=== PATIENT | male | born 1945 | race Caucasian/White ===

== ENCOUNTER 2020-04-04 18:24 | Emergency (ER) | payer MEDICARE, BC ==
[2020-04-04] MEDS ORDERED: Sodium Chloride 0.9% 10 ML Syringe FLUSH PRN (18:44)
[2020-04-04] MEDS ORDERED: Sodium Chloride 0.9% 2.5 ML Syringe FLUSH PRN (18:44)
--- NOTE | 2020-04-04 19:38 | CR ---
Indication: Altered mental status Technique: Chest 1 view Comparison: None Findings/Impression: Cardiovascular and mediastinum: Heart size and vasculature are normal in caliber and appearance. Mediastinum is within normal limits. Lungs and pleural space: Lungs are clear. No sign of infiltrate or mass. No sign of pleural effusion. No pneumothorax. Bones and soft tissues: No significant findings. Dictated by Pinky Lopez MD @ Apr 04 2020 7:34PM Signed by Dr. Pinky Lopez @ Apr 04 2020 7:35PM
--- NOTE | 2020-04-04 19:40 | EDM.PDOC ---
<Taz Walker - Last Filed: 04/04/20 23:52> ED HPI GENERAL MEDICAL PROBLEM - General Chief Complaint: Neurological Problem Stated Complaint: HIGH AMONIA LEVELS/CONSTIPATED Time Seen by Provider: 04/04/20 18:26 - Related Data Allergies Allergy/AdvReac Type Severity Reaction Status Date / Time No Known Allergies Allergy Verified 04/04/20 18:43 Home Meds: Home Meds Ferrous Sulfate 04/04/20 [History] Furosemide [Lasix] 40 mg PO DAILY 04/04/20 [History] Insulin Glarg,Human.Rec.Analog [Lantus] 12 units ACBREAKFAST 04/04/20 [History] Insulin Lispro [HumaLOG] 04/04/20 [History] Omeprazole Magnesium [Prilosec Otc] 20 mg PO 04/04/20 [History] Simvastatin 40 mg PO 04/04/20 [History] Spironolactone [Aldactone] 25 mg PO DAILY 04/04/20 [History] Course - Re-Assessments/Exams Free Text/Narrative Re-Assessment/Exam: 04/04/20 23:52 And out to me by the PA. Patient labs returned with some elevation of LFT. Patient CAT scan had numerous muscle finding for possible portal vein thrombus possible cholangitis possible abscess. We spoke to Dr. Persaud at [facility] in patient will be transferred back to their facility for further care. Patient was started on Zosyn here for possible cholangitis. Departure - Departure Time of Disposition: 23:52 Disposition: DC/Tfer to Acute Hospital 02 Condition: Good Clinical Impression: Cholangitis - Discharge Information *PRESCRIPTION DRUG MONITORING PROGRAM REVIEWED*: Not Applicable *COPY OF PRESCRIPTION DRUG MONITORING REPORT IN PATIENT MARY: Not Applicable Referrals: Willie Reyes MD [Primary Care Provider] - Forms: ED Department Discharge <Nolvia,Melissa - Last Filed: 04/06/20 21:41> ED HPI GENERAL MEDICAL PROBLEM - General Source of Information: Reports: Patient, Family History Limitations: Reports: Altered Mental Status - History of Present Illness INITIAL COMMENTS - FREE TEXT/NARRATIVE: HISTORY AND PHYSICAL: History of present illness: Patient is a 74-year-old male who presents emergency room today with his for concern of confusion x2 days. Patient had a TIPS procedure performed at [facility] in [place] [address] Persaud. Patient's states that they have just got home on Wednesday from the hospital following the surgery. states that patient had liver failure as a result of eating "a whole bag of sunflower seeds "and states that it threw his "liver into a funk ". states that they called patient surgeon today who states that patient was supposed to be taking lactulose following the procedure. states that they did not receive a prescription for this and patient has been constipated. Patient's said that he has been more forgetful and is confused about the year. states that she instructed patient to go to the restroom and he went to the bathroom in her craft room instead and open the window. [place] any falls for patient and states that she has noticed he appears to be more yellow of the skin. Patient denies any symptoms or concerns at this time. Patient denies fever, chills, chest pain, shortness of breath, or cough. Denies headache, neck stiff ness, change in vision, syncope, or near syncope. Denies nausea, vomiting, abdominal pain, diarrhea, constipation, or dysuria. Has not noted any blood in urine or stool. Patient has been eating and drinking appropriately. Review of systems: As per history of present illness and below otherwise all systems reviewed and negative. Past medical history: As per history of present illness and as reviewed below otherwise noncontributory. Surgical history: As per history of present illness and as reviewed below otherwise noncontributory. Social history: See social history for further information Family history: As per history of present illness and as reviewed below otherwise noncontributory. Physical exam: General: Patient is alert, oriented to person but not place or time, and in no acute distress. Patient laying comfortably on exam table. HEENT: Atraumatic, normocephalic, pupils equal and reactive bilaterally, negative for conjunctival pallor but positive scleral icterus, mucous membranes moist, TMs normal bilaterally, throat clear, neck supple, nontender, trachea midline. No drooling or trismus noted. No meningeal signs. No hot potato voice noted. Lungs: Clear to auscultation, breath sounds equal bilaterally, chest nontender. Heart: S1S2, regular rate and rhythm without overt murmur Abdomen: Soft, nondistended, nontender. Negative for masses or hepatosplenomegaly. Negative for costovertebral tenderness. Pelvis: Stable nontender. Genitourinary: Deferred. Rectal: Deferred. Skin: Jaundice, intact, warm, dry. No lesions or rashes noted. Extremities: Atraumatic, negative for cords or calf pain. Neurovascular unremarkable. Neuro: Awake, alert, oriented. Cranial nerves II through XII unremarkable. Cerebellum unremarkable. Motor and sensory unremarkable throughout. Exam nonfocal. Notes: Dr. Walker has assumed care of patient and will follow remaining diagnostics and disposition for patient. Diagnostics: EKG, CBC, CMP, UA, CXR, Trop, Head CT, Ethanol, UDS, Ammonia, PT/INR, RUQ US, Abd/Pelvic w cont Therapeutics: Saline, Lactulose Impression: Altered mental status Transaminitis Elevated renal function Plan: Definitive disposition and diagnosis as appropriate pending reevaluation and review of above. Past Medical History Cardiovascular History: Reports: High Cholesterol, Hypertension Gastrointestinal History: Reports: Cirrhosis Endocrine/Metabolic History: Reports: Diabetes, Type II - Infectious Disease History Infectious Disease History: Reports: None Social & Family History - Family History Family Medical History: No Pertinent Family History - Tobacco Use Tobacco Use Status *Q: Never Tobacco User - Caffeine Use Caffeine Use: Reports: None - Recreational Drug Use Recreational Drug Use: No ED ROS GENERAL - Review of Systems Review Of Systems: Comprehensive ROS is negative, except as noted in HPI. ED EXAM, GENERAL - Physical Exam Exam: See Below (see dictation) Course - Vital Signs Last Recorded V/S: Last Vital Signs Temp 98.1 F 04/05/20 00:00 Pulse 77 04/05/20 00:00 Resp 18 04/05/20 00:00 BP 125/68 04/05/20 00:00 Pulse Ox 96 04/05/20 00:00 - Orders/Labs/Meds Labs: Laboratory Tests 04/04/20 04/04/20 04/04/20 Range/Units 19:13 19:13 19:13 WBC 4.69 (4.0-11.0) K/uL RBC 3.72 L (4.50-5.90) M/uL Hgb 11.5 L (13.0-17.0) g/dL Hct 33.6 L (38.0-50.0) % MCV 90.3 (80.0-98.0) fL MCH 30.9 (27.0-32.0) pg MCHC 34.2 (31.0-37.0) g/dL RDW Std Deviation 53.9 (28.0-62.0) fl RDW Coeff of Jessica 17 H (11.0-15.0) % Plt Count 223 (150-400) K/uL MPV 10.10 (7.40-12.00) fL Neut % (Auto) 72.9 (48.0-80.0) % Lymph % (Auto) 13.2 L (16.0-40.0) % [place] % (Auto) 10.2 (0.0-15.0) % Eos % (Auto) 2.8 (0.0-7.0) % Baso % (Auto) 0.9 (0.0-1.5) % Neut # (Auto) 3.4 (1.4-5.7) K/uL Lymph # (Auto) 0.6 (0.6-2.4) K/uL [place] # (Auto) 0.5 (0.0-0.8) K/uL Eos # (Auto) 0.1 (0.0-0.7) K/uL Baso # (Auto) 0.0 (0.0-0.1) K/uL Nucleated RBC % 0.0 /100WBC Nucleated RBCs # 0 K/uL INR 1.04 Sodium 141 (136-148) mmol/L Potassium 4.9 (3.5-5.1) mmol/L Chloride 102 (98-107) mmol/L Carbon Dioxide 29.8 (21.0-32.0) mmol/L BUN 25 H (7.0-18.0) mg/dL Creatinine 1.7 H (0.8-1.3) mg/dL Est Cr Clr Drug Dosing 39.28 mL/min Estimated GFR (MDRD) 39.8 ml/min Glucose 317 H (74-106) mg/dL Calcium 9.1 (8.5-10.1) mg/dL Total Bilirubin 2.4 H (0.2-1.0) mg/dL AST 77 H (15-37) IU/L ALT 105 H (14-63) IU/L Alkaline Phosphatase 473 H (46-116) U/L Ammonia (19-54) ug/dL Troponin I < 0.050 (0.000-0.056) ng/mL Total Protein 6.6 (6.4-8.2) g/dL Albumin 3.3 L (3.4-5.0) g/dL Globulin 3.3 (2.6-4.0) g/dL Albumin/Globulin Ratio 1.0 (0.9-1.6) Lipase 428 H (73-393) U/L Urine Color Urine Appearance Urine pH (5.0-8.0) Ur Specific [place] (1.001-1.035) Urine Protein (NEGATIVE) mg/dL Urine Glucose (UA) (NEGATIVE) mg/dL Urine Ketones (NEGATIVE) mg/dL Urine Occult Blood (NEGATIVE) Urine Nitrite (NEGATIVE) Urine Bilirubin (NEGATIVE) Urine Urobilinogen (<2.0) EU/dL Ur Leukocyte Esterase (NEGATIVE) Urine Opiates Screen (NEGATIVE) Ur Oxycodone Screen (NEGATIVE) Urine Methadone Screen (NEGATIVE) Ur Barbiturates Screen (NEGATIVE) Ur Phencyclidine Scrn (NEGATIVE) Ur Amphetamine Screen (NEGATIVE) U Methamphetamines Scrn (NEGATIVE) U Benzodiazepines Scrn (NEGATIVE) U Cocaine Metab Screen (NEGATIVE) U Marijuana (THC) Screen (NEGATIVE) Ethyl Alcohol < 3.0 mg/dL SARS-CoV-2 RNA (BÁRBARA) (NEGATIVE) 04/04/20 04/04/20 04/04/20 Range/Units 19:13 20:55 20:55 WBC (4.0-11.0) K/uL RBC (4.50-5.90) M/uL Hgb (13.0-17.0) g/dL Hct (38.0-50.0) % MCV (80.0-98.0) fL MCH (27.0-32.0) pg MCHC (31.0-37.0) g/dL RDW Std Deviation (28.0-62.0) fl RDW Coeff of Jessica (11.0-15.0) % Plt Count (150-400) K/uL MPV (7.40-12.00) fL Neut % (Auto) (48.0-80.0) % Lymph % (Auto) (16.0-40.0) % [place] % (Auto) (0.0-15.0) % Eos % (Auto) (0.0-7.0) % Baso % (Auto) (0.0-1.5) % Neut # (Auto) (1.4-5.7) K/uL Lymph # (Auto) (0.6-2.4) K/uL [place] # (Auto) (0.0-0.8) K/uL Eos # (Auto) (0.0-0.7) K/uL Baso # (Auto) (0.0-0.1) K/uL Nucleated RBC % /100WBC Nucleated RBCs # K/uL INR Sodium (136-148) mmol/L Potassium (3.5-5.1) mmol/L Chloride (98-107) mmol/L Carbon Dioxide (21.0-32.0) mmol/L BUN (7.0-18.0) mg/dL Creatinine (0.8-1.3) mg/dL Est Cr Clr Drug Dosing mL/min Estimated GFR (MDRD) ml/min Glucose (74-106) mg/dL Calcium (8.5-10.1) mg/dL Total Bilirubin (0.2-1.0) mg/dL AST (15-37) IU/L ALT (14-63) IU/L Alkaline Phosphatase (46-116) U/L Ammonia 107 H (19-54) ug/dL Troponin I (0.000-0.056) ng/mL Total Protein (6.4-8.2) g/dL Albumin (3.4-5.0) g/dL Globulin (2.6-4.0) g/dL Albumin/Globulin Ratio (0.9-1.6) Lipase (73-393) U/L Urine Color YELLOW Urine Appearance CLEAR Urine pH 7.5 (5.0-8.0) Ur Specific [place] 1.015 (1.001-1.035) Urine Protein NEGATIVE (NEGATIVE) mg/dL Urine Glucose (UA) NEGATIVE (NEGATIVE) mg/dL Urine Ketones NEGATIVE (NEGATIVE) mg/dL Urine Occult Blood NEGATIVE (NEGATIVE) Urine Nitrite NEGATIVE (NEGATIVE) Urine Bilirubin NEGATIVE (NEGATIVE) Urine Urobilinogen 0.2 (<2.0) EU/dL Ur Leukocyte Esterase NEGATIVE (NEGATIVE) Urine Opiates Screen NEGATIVE (NEGATIVE) Ur Oxycodone Screen NEGATIVE (NEGATIVE) Urine Methadone Screen NEGATIVE (NEGATIVE) Ur Barbiturates Screen NEGATIVE (NEGATIVE) Ur Phencyclidine Scrn NEGATIVE (NEGATIVE) Ur Amphetamine Screen NEGATIVE (NEGATIVE) U Methamphetamines Scrn NEGATIVE (NEGATIVE) U Benzodiazepines Scrn NEGATIVE (NEGATIVE) U Cocaine Metab Screen NEGATIVE (NEGATIVE) U Marijuana (THC) Screen NEGATIVE (NEGATIVE) Ethyl Alcohol mg/dL SARS-CoV-2 RNA (BÁRBARA) (NEGATIVE) 04/04/20 Range/Units 23:38 WBC (4.0-11.0) K/uL RBC (4.50-5.90) M/uL Hgb (13.0-17.0) g/dL Hct (38.0-50.0) % MCV (80.0-98.0) fL MCH (27.0-32.0) pg MCHC (31.0-37.0) g/dL RDW Std Deviation (28.0-62.0) fl RDW Coeff of Jessica (11.0-15.0) % Plt Count (150-400) K/uL MPV (7.40-12.00) fL Neut % (Auto) (48.0-80.0) % Lymph % (Auto) (16.0-40.0) % [place] % (Auto) (0.0-15.0) % Eos % (Auto) (0.0-7.0) % Baso % (Auto) (0.0-1.5) % Neut # (Auto) (1.4-5.7) K/uL Lymph # (Auto) (0.6-2.4) K/uL [place] # (Auto) (0.0-0.8) K/uL Eos # (Auto) (0.0-0.7) K/uL Baso # (Auto) (0.0-0.1) K/uL Nucleated RBC % /100WBC Nucleated RBCs # K/uL INR Sodium (136-148) mmol/L Potassium (3.5-5.1) mmol/L Chloride (98-107) mmol/L Carbon Dioxide (21.0-32.0) mmol/L BUN (7.0-18.0) mg/dL Creatinine (0.8-1.3) mg/dL Est Cr Clr Drug Dosing mL/min Estimated GFR (MDRD) ml/min Glucose (74-106) mg/dL Calcium (8.5-10.1) mg/dL Total Bilirubin (0.2-1.0) mg/dL AST (15-37) IU/L ALT (14-63) IU/L Alkaline Phosphatase (46-116) U/L Ammonia (19-54) ug/dL Troponin I (0.000-0.056) ng/mL Total Protein (6.4-8.2) g/dL Albumin (3.4-5.0) g/dL Globulin (2.6-4.0) g/dL Albumin/Globulin Ratio (0.9-1.6) Lipase (73-393) U/L Urine Color Urine Appearance Urine pH (5.0-8.0) Ur Specific [place] (1.001-1.035) Urine Protein (NEGATIVE) mg/dL Urine Glucose (UA) (NEGATIVE) mg/dL Urine Ketones (NEGATIVE) mg/dL Urine Occult Blood (NEGATIVE) Urine Nitrite (NEGATIVE) Urine Bilirubin (NEGATIVE) Urine Urobilinogen (<2.0) EU/dL Ur Leukocyte Esterase (NEGATIVE) Urine Opiates Screen (NEGATIVE) Ur Oxycodone Screen (NEGATIVE) Urine Methadone Screen (NEGATIVE) Ur Barbiturates Screen (NEGATIVE) Ur Phencyclidine Scrn (NEGATIVE) Ur Amphetamine Screen (NEGATIVE) U Methamphetamines Scrn (NEGATIVE) U Benzodiazepines Scrn (NEGATIVE) U Cocaine Metab Screen (NEGATIVE) U Marijuana (THC) Screen (NEGATIVE) Ethyl Alcohol mg/dL SARS-CoV-2 RNA (BÁRBARA) NEGATIVE (NEGATIVE) Meds: Medications Discontinued Medications Generic Name Dose Route Start Last Admin Trade Name Kevanq PRN Reason Stop Dose Admin Sodium Chloride 1,000 mls @ 999 mls/hr 04/04/20 21:25 04/04/20 22:03 Normal Saline IV 04/04/20 22:25 999 mls/hr STAT ONE Administration Piperacillin Sod/Tazobactam 100 mls @ 100 mls/hr 04/04/20 22:54 04/04/20 23:24 Sod 4.5 gm/ Sodium Chloride IV 04/04/20 23:53 100 mls/hr ONETIME ONE Administration Iopamidol 100 ml 04/04/20 22:01 04/04/20 22:02 Isovue Multipack-370 (76%) IVPUSH 04/04/20 22:02 100 ml ONETIME STA Administration Lactulose 20 gm 04/04/20 20:50 04/04/20 21:01 Chronulac PO 04/04/20 20:51 20 gm ONETIME ONE Administration Lactulose 0.3 gm 04/05/20 06:00 Chronulac PO TID TANIA Sodium Chloride 10 ml 04/04/20 18:44 Saline Flush FLUSH ASDIRECTED PRN Keep Vein Open Sodium Chloride 2.5 ml 04/04/20 18:44 Saline Flush FLUSH ASDIRECTED PRN Keep Vein Open Sepsis Event Note (ED) - Evaluation Sepsis Screening Result: No Definite Risk
[2020-04-04 19:56] LABS: BLOOD UREA NITROGEN,BUN 25 mg/dL (7.0-18.0); CARBON DIOXIDE,CO2 29.8 mmol/L (21.0-32.0); CHLORIDE,CL 102 mmol/L (98-107); GLUCOSE RANDOM 317 mg/dL (74-106); LIPASE 428 U/L (73-393); POTASSIUM,K 4.9 mmol/L (3.5-5.1); SODIUM,NA 141 mmol/L (136-148)
--- NOTE | 2020-04-04 20:24 | CT ---
INDICATION: Altered mental status COMPARISON: None available. TECHNIQUE: CT examination of the head was performed with 5 mm thick axial and 2 millimeter thick coronal sections without intravenous contrast. Images were obtained from the vertex of the skull through the skull base, and I examined the images with the brain and bone windows. Please note that all CT scans at this facility use dose modulation, iterative reconstruction, and/or weight-based dosing when appropriate to reduce radiation dose to as low as reasonably achievable. FINDINGS: : The brain is normal in appearance for the patient`s age on today`s study, with no sign of mass lesion, mass effect, hemorrhage, or edema. The ventricles and sulci are normal in appearance for the patient`s age. The visualized portions of the orbits are normal in appearance. The visualized portions of the paranasal sinuses and mastoids are clear. The osseous structures are normal in their appearance with no sign of abnormality in the skull base or calvarium. IMPRESSION: Normal noncontrast CT of the head for the patient`s age. Please note that all CT scans at this facility use dose modulation, iterative reconstruction, and/or weight-based dosing when appropriate to reduce radiation dose to as low as reasonably achievable. Dictated by Brendan Hammond MD @ Apr 04 2020 8:21PM Signed by Dr. Brendan Hammond @ Apr 04 2020 8:23PM
--- NOTE | 2020-04-04 20:39 | PCM.EKG ---
#1 Interpretation EKG Date: 04/04/20 Time: 19:05 Rhythm: NSR Rate (Beats/Min): 77 ST-T: Normal
[2020-04-04] MEDS ORDERED: Lactulose Soln 10 GM/15 ML 15 ML UD Cup PO ONE (20:50)
[2020-04-04] MEDS ORDERED: Sodium Chloride 0.9% 1,000 ML IV ONE (21:25)
[2020-04-04] MEDS ORDERED: Iopamidol 755 MG/ML 500 ML Multipack Bottle IVPUSH STA (22:01)
--- NOTE | 2020-04-04 22:38 | CT ---
INDICATION: Post TIPS. Jaundice. AMS TECHNIQUE: CT abdomen and pelvis acquired with IV contrast. 100 mL of Isovue 370 administered. COMPARISON: None available FINDINGS: Lower chest: Mild prominence of the distal esophageal wall. Sub centimeter distal paraesophageal lymph nodes. A dilated ascending aorta measuring 4 cm. Gynecomastia. Liver: A cirrhotic liver with a TIPS shunt in place. Hepatic steatosis. Ill-defined mild heterogeneity of the inferior aspect of the medial segment of the left lobe. A focal thrombus seen in the left portal vein on images 41-45 of series 201. Spleen: Unremarkable. Pancreas: Several pancreatic low-density lesions, including a 7 mm lesion in the pancreatic head on image 78, a 9 mm lesion in the pancreatic neck on image 71, a 1.2 cm lesion in the pancreatic body on image 62, a 1.8 x 1.6 cm lesion in the pancreatic body on image 59, a 1 cm pancreatic body lesion on image 63, and a 1.7 x 1.4 cm lesion in the pancreatic tail on image 62. Gallbladder and bile ducts: Cholecystectomy. Apparent mild enhancement along the wall of the nondilated CBD and cystic duct remnant. Adrenal glands: Mild adrenal thickening which could represent mild hyperplasia. Kidneys: Unremarkable. GI tract: Edema adjacent to the proximal duodenum could be related to ascites. No bowel obstruction. The appendix is not seen. Rectal wall thickening with slight perirectal stranding. Vascular structures: Atherosclerotic changes. Few small caliber upper abdominal collaterals. Lymph nodes: Shotty subcentimeter upper abdominal lymph nodes, nonspecific. No abnormally enlarged lymph nodes. Miscellaneous: Small to moderate ascites. No free air. A multi lobulated low-density structure or collection in the supraumbilical anterior abdominal wall subcutaneous fat, measuring 5.3 x 2.1 x 3.5 cm, demonstrating thin peripheral and septal enhancement. An adjacent 2.5 x 2.0 cm soft tissue density right of midline on image 122, and an irregular fungating soft tissue density structure at the umbilicus, measuring up to 7.4 x 3.1 x 5.9 cm. Pelvic Organs: Status post prostatectomy and pelvic lymph node dissection. A contracted bladder demonstrating diffuse wall thickening. An 8 mm ovoid enhancing soft tissue density at the anterior aspect of the bladder on image 183 which may be related to the adjacent pubic symphysis. Bones: Unremarkable for age. IMPRESSION: Cirrhosis with TIPS shunt in place. Hepatic steatosis. Heterogeneous appearance of the medial segment of the left lobe. Recommend follow-up evaluation with contrast MRI to exclude underlying neoplasm. Small to moderate ascites. Multiple pancreatic low-density lesions. Follow-up with contrast MRI evaluation. Mild enhancement along the wall of the nondilated CBD. Correlate clinically to exclude cholangitis. An irregular fungating soft tissue structure at the umbilicus with an ovoid soft tissue density in the underlying anterior abdominal subcutaneous fat, right of midline, and an adjacent lobulated, septated low-density structure or collection. Neoplasm is a prime consideration and further evaluation is recommended. A focal thrombus in the left portal vein. Rectal wall thickening, nonspecific in the setting of cirrhosis. Correlate for proctitis. Diffuse bladder wall thickening. Correlate for cystitis. A subcentimeter ovoid enhancing soft tissue density at the anterior aspect of the bladder wall may be related to the adjacent pubic symphysis, however further urological evaluation is recommended to exclude bladder neoplasm. Mild distal esophageal wall thickening. Correlate for esophagitis. Please note that all CT scans at this facility use dose modulation, iterative reconstruction, and/or weight-based dosing when appropriate to reduce radiation dose to as low as reasonably achievable. Dictated by Juan R Milian MD @ Apr 04 2020 10:10PM Signed by Dr. Juan R Milian @ Apr 04 2020 10:37PM
[2020-04-04] MEDS ORDERED: Piperacillin/Tazobactam 4.5 GM in Sodium Chloride 0.9% 100 ML IV ONE (22:54)
--- NOTE | 2020-04-04 22:56 | US ---
INDICATION: Status post TIPS with obstructive labs. COMPARISON: CT of the abdomen and pelvis from earlier this evening. TECHNIQUE: Ultrasound examination of the right upper quadrant was performed. FINDINGS: Again seen is mild ascites with fluid in the upper abdomen, but not present in the lower quadrants. The gallbladder is absent, consistent with cholecystectomy. There is no residual fluid in the gall bladder fossa. The common bile duct cannot be identified because of bowel gas. The pancreatic head and body were examined, and these are normal in appearance. The abdominal aorta and visualized portions of the inferior vena cava are normal in appearance. The liver is small and nodular, consistent with cirrhosis. Hepatopetal flow is seen in the portal vein. The TIPS shunt is patent with low resistance flow. The right kidney is unremarkable. The spleen does not appear to be enlarged. IMPRESSION: Unable to identify the common bile duct because of bowel gas. Status post cholecystectomy. Mild ascites. Small, nodular liver consistent with cirrhosis. Patent TIPS shunt. Antegrade flow in the portal vein. Dictated by Brendan Hammond MD @ Apr 04 2020 10:47PM Signed by Dr. Brendan Hammond @ Apr 04 2020 10:55PM
[2020-04-05 00:07] VITALS: BP 125/68; PULSE 77
[2020-04-05] MEDS ORDERED: Lactulose Soln 10 GM/15 ML 15 ML UD Cup PO SCH (06:00)
== END 2020-04-05 00:45 ==
LOC: MW.ED 18:24
DX: K83.09 Other cholangitis (principal); R41.82 Altered mental status, unspecified; E78.00 Pure hypercholesterolemia, unspecified; I10 Essential (primary) hypertension; E11.9 Type 2 diabetes mellitus without complications; R79.89 Other specified abnormal findings of blood chemistry; R74.01 Elevation of levels of liver transaminase levels; Z79.4 Long term (current) use of insulin; Z79.899 Other long term (current) drug therapy; Z20.822 Contact with and (suspected) exposure to COVID-19
CPT/HCPCS: 36415; 70450; 71045; 74177; 76705; 80053; 80179; 80305; 81003; 82140; 83690; 84484; 85025; 85610; 93005; 96365; 99285; A9270; J2543; J7030; Q9967; U0002; 93010; 99284

== ENCOUNTER 2020-09-27 21:56 | Observation (INO) | payer MEDICARE, BC ==
[2020-09-27] MEDS ORDERED: Sodium Chloride 0.9% 2.5 ML Syringe FLUSH PRN (22:53)
[2020-09-27] MEDS ORDERED: Sodium Chloride 0.9% 10 ML Syringe FLUSH PRN (22:53)
[2020-09-27 23:12] LABS: CARBON DIOXIDE,CO2 26.2 mmol/L (21.0-32.0); POTASSIUM,K 5.1 mmol/L (3.5-5.1)
--- NOTE | 2020-09-27 23:56 | CT ---
INDICATION: Transient alteration of awareness TECHNIQUE: CT Head without i.v. contrast. Coronal and sagittal reformats were obtained. COMPARISON: 04/04/2020 FINDINGS: CSF space: Unremarkable for age. Brain: No evidence of mass, acute infarction or hemorrhage is seen. No mass-effect or midline shift is seen. Mild diffuse cortical atrophy is noted. The brain parenchyma is otherwise normal in appearance with preservation of the baez-white matter junction. Calvarium: The visualized paranasal sinuses are well aerated. The mastoid air cells are clear. The visualized orbits are grossly unremarkable. The calvarium is unremarkable in appearance with no fractures identified. IMPRESSION: 1. No evidence of acute infarction, intracranial hemorrhage, or mass-effect seen. Please note that all CT scans at this facility use dose modulation, iterative reconstruction, and/or weight-based dosing when appropriate to reduce radiation dose to as low as reasonably achievable. Dictated by: Doroteo Estrada MD @ 09/27/2020 23:55:11 (Electronically Signed)
[2020-09-28] MEDS ORDERED: Lactulose Soln 10 GM/15 ML 15 ML UD Cup PO ONE ×2 (00:39→21:30)
[2020-09-28] MEDS ORDERED: Sodium Chloride 0.9% 1,000 ML IV SCH (00:45)
--- NOTE | 2020-09-28 01:47 | EDM.PDOC ---
ED HPI GENERAL MEDICAL PROBLEM - General Chief Complaint: Gastrointestinal Problem Stated Complaint: FELELING CONFUSED POSSABLE HIGH AMONIA Time Seen by Provider: 09/27/20 22:26 Source of Information: Reports: Patient, Family - History of Present Illness INITIAL COMMENTS - FREE TEXT/NARRATIVE: History of present illness: 74-year-old male brought by for confusion with concern for elevated ammonia level. The patient has a history of cirrhosis. He normally takes lactulose 45 mg 4 times per day, however his noticed over the last few days he has been attempting to pour into the cup and has been shaky and spilling it therefore not getting his full dose on multiple occasions. Over the last week he has been more confused, and sleepy and forgetful, "offkilter". She did note today that he basically was laying around in bed all day, sleeping most of the day and earlier in the day his close were put on "all goofy". She did note today that he had some decrease eating and had no appetite. Patient himself has no complaints. Review of systems: As per history of present illness and below otherwise all systems reviewed and negative. Past medical history: As per history of present illness and as reviewed below otherwise noncontributory. Surgical history: As per history of present illness and as reviewed below otherwise noncontributory. Social history: Non-smoker Family history: As per history of present illness and as reviewed below otherwise noncontributory. Physical exam: GEN: no acute distress, well appearing HEENT: Atraumatic, normocephalic, mucous membranes moist, Neck: supple, nontender, trachea midline. Lungs: No respiratory distress. Heart: RRR Abdomen: Soft, nondistended, nontender. No ascites. Back: Full range of motion Extremities: Atraumatic. Neurovascularly intact. Neuro: Awake, alert, confused about date. Oriented to self and place. Neuro Exam nonfocal. Skin: warm, dry, no lesions Diagnostics: Labs, ammonia, EKG, CT head Ammonia elevated, creatinine acutely elevated from prior levels. CT Head WO CONT-09/27/2020 11:18:57 PM Ordering Physician: Sascha Barnard Final Report: INDICATION: Transient alteration of awareness TECHNIQUE: CT Head without i.v. contrast. Coronal and sagittal reformats were obtained. COMPARISON: 04/04/2020 FINDINGS: CSF space: Unremarkable for age. Brain: No evidence of mass, acute infarction or hemorrhage is seen. No mass- effect or midline shift is seen. Mild diffuse cortical atrophy is noted. The brain parenchyma is otherwise normal in appearance with preservation of the baez-white matter junction. Calvarium: The visualized paranasal sinuses are well aerated. The mastoid air cells are clear. The visualized orbits are grossly unremarkable. The calvarium is unremarkable in appearance with no fractures identified. IMPRESSION: 1. No evidence of acute infarction, intracranial hemorrhage, or mass-effect seen. EKG performed September 27, 2020 at 10:48 PM, sinus arrhythmia, rate 68, no acute ischemia, no STEMI. Interpreted by me. Therapeutics: Lactulose and IV fluids MDM: Patient presenting with confusion/altered mental status and decreased activity. Ammonia level is elevated. Creatinine is also elevated. Normal neurologic exam other than orientation. Given IV fluids and lactulose. Will admit Impression: Acute renal sufficiency, hepatic encephalopathy, hyperammonemia, altered mental status Plan: [] Definitive disposition and diagnosis as appropriate pending reevaluation and review of above. - Related Data Allergies Allergy/AdvReac Type Severity Reaction Status Date / Time No Known Allergies Allergy Verified 09/27/20 22:36 Home Meds: Home Meds Ferrous Sulfate 1 tab PO DAILY 04/04/20 [History] Furosemide [Lasix] 40 mg PO BID 04/04/20 [History] Insulin Glarg,Human.Rec.Analog [Lantus] 15 units SQ ACBREAKFAST 04/04/20 [History] Omeprazole Magnesium [Prilosec Otc] 40 mg PO DAILY 04/04/20 [History] Simvastatin 40 mg PO ASDIRECTED 04/04/20 [History] Spironolactone [Aldactone] 50 mg PO DAILY 04/04/20 [History] Aspirin 81 mg PO DAILY 09/28/20 [History] Lactulose 45 gm PO Q4HR 09/28/20 [History] Midodrine 2.5 mg PO BID 09/28/20 [History] Rifaximin [Xifaxan] 550 mg PO BID 09/28/20 [History] metFORMIN [Glucophage] 500 mg PO BIDMEALS 09/28/20 [History] Past Medical History HEENT History: Reports: Hard of Hearing Cardiovascular History: Reports: High Cholesterol, Hypertension Respiratory History: Reports: None Gastrointestinal History: Reports: Cirrhosis Genitourinary History: Reports: Prostate Disorder Musculoskeletal History: Reports: None Neurological History: Reports: None Psychiatric History: Reports: None Endocrine/Metabolic History: Reports: Diabetes, Type II Insulin Pump Model and Shared Services Manager: None Hematologic History: Reports: None Immunologic History: Reports: None Oncologic (Cancer) History: Reports: Prostate Dermatologic History: Reports: None - Infectious Disease History Infectious Disease History: Reports: None - Past Surgical History Head Surgeries/Procedures: Reports: None GI Surgical History: Reports: Cholecystectomy, Other (See Below) Other GI Surgeries/Procedures: Liver Stents Social & Family History - Family History Family Medical History: No Pertinent Family History - Caffeine Use Caffeine Use: Reports: None - Recreational Drug Use Recreational Drug Use: No ED ROS GENERAL - Review of Systems Review Of Systems: See Below (See dictation) ED EXAM, GENERAL - Physical Exam Exam: See Below (See dictation) Course - Vital Signs Last Recorded V/S: Last Vital Signs Temp 97 F 09/27/20 22:25 Pulse 77 09/28/20 01:00 Resp 18 09/28/20 01:00 BP 138/67 09/28/20 01:00 Pulse Ox 97 09/28/20 01:00 - Orders/Labs/Meds Orders: Active Orders 24 hr Category Date Time Status EKG Documentation Completion [RC] STAT Care 09/27/20 22:54 Active Sodium Chloride 0.9% [Normal Saline] 1,000 ml Med 09/28/20 00:45 Active IV ASDIRECTED Sodium Chloride 0.9% [Saline Flush] Med 09/27/20 22:53 Active 10 ml FLUSH ASDIRECTED PRN Sodium Chloride 0.9% [Saline Flush] Med 09/27/20 22:53 Active 2.5 ml FLUSH ASDIRECTED PRN Saline Lock Insert [OM.PC] Stat Oth 09/27/20 22:53 Ordered Medication Orders Sodium Chloride (Normal Saline) 1,000 mls @ 200 mls/hr IV ASDIRECTED TANIA Last Admin: 09/28/20 01:04 Dose: 200 mls/hr Documented by: NA Sodium Chloride (Sodium Chloride 0.9% 10 Ml Syringe) 10 ml FLUSH ASDIRECTED PRN PRN Reason: Keep Vein Open Sodium Chloride (Sodium Chloride 0.9% 2.5 Ml Syringe) 2.5 ml FLUSH ASDIRECTED PRN PRN Reason: Keep Vein Open Labs: Laboratory Tests 09/27/20 09/27/20 09/27/20 Range/Units 11:15 22:50 22:50 WBC 7.78 (4.0-11.0) K/uL RBC 4.23 L (4.50-5.90) M/uL Hgb 13.8 (13.0-17.0) g/dL Hct 37.0 L (38.0-50.0) % MCV 87.5 (80.0-98.0) fL MCH 32.6 H (27.0-32.0) pg MCHC 37.3 H (31.0-37.0) g/dL RDW Std Deviation 45.3 (28.0-62.0) fl RDW Coeff of Jessica 15 (11.0-15.0) % Plt Count 174 (150-400) K/uL MPV 11.70 (7.40-12.00) fL Neut % (Auto) 68.4 (48.0-80.0) % Lymph % (Auto) 16.2 (16.0-40.0) % Castro % (Auto) 12.2 (0.0-15.0) % Eos % (Auto) 2.6 (0.0-7.0) % Baso % (Auto) 0.6 (0.0-1.5) % Neut # (Auto) 5.3 (1.4-5.7) K/uL Lymph # (Auto) 1.3 (0.6-2.4) K/uL Castro # (Auto) 1.0 H (0.0-0.8) K/uL Eos # (Auto) 0.2 (0.0-0.7) K/uL Baso # (Auto) 0.1 (0.0-0.1) K/uL Nucleated RBC % 0.0 /100WBC Nucleated RBCs # 0 K/uL Sodium 136 (136-148) mmol/L Potassium 5.1 (3.5-5.1) mmol/L Chloride 99 (98-107) mmol/L Carbon Dioxide 26.2 (21.0-32.0) mmol/L BUN 30 H (7.0-18.0) mg/dL Creatinine 2.3 H (0.8-1.3) mg/dL Est Cr Clr Drug Dosing 29.98 mL/min Estimated GFR (MDRD) 28.1 ml/min Glucose 261 H (74-106) mg/dL Calcium 12.5 H (8.5-10.1) mg/dL Total Bilirubin 2.6 H (0.2-1.0) mg/dL AST 93 H (15-37) IU/L ALT 115 H (14-63) IU/L Alkaline Phosphatase 274 H (46-116) U/L Ammonia (19-54) ug/dL Total Protein 7.0 (6.4-8.2) g/dL Albumin 3.6 (3.4-5.0) g/dL Globulin 3.4 (2.6-4.0) g/dL Albumin/Globulin Ratio 1.1 (0.9-1.6) Urine Color YELLOW Urine Appearance CLEAR Urine pH 5.5 (5.0-8.0) Ur Specific [place] 1.025 (1.001-1.035) Urine Protein 30 H (NEGATIVE) mg/dL Urine Glucose (UA) NEGATIVE (NEGATIVE) mg/dL Urine Ketones NEGATIVE (NEGATIVE) mg/dL Urine Occult Blood TRACE-INTACT H (NEGATIVE) Urine Nitrite NEGATIVE (NEGATIVE) Urine Bilirubin NEGATIVE (NEGATIVE) Urine Urobilinogen 0.2 (<2.0) EU/dL Ur Leukocyte Esterase NEGATIVE (NEGATIVE) SARS-CoV-2 RNA (BÁRBARA) (NEGATIVE) 09/27/20 09/28/20 Range/Units 22:50 01:15 WBC (4.0-11.0) K/uL RBC (4.50-5.90) M/uL Hgb (13.0-17.0) g/dL Hct (38.0-50.0) % MCV (80.0-98.0) fL MCH (27.0-32.0) pg MCHC (31.0-37.0) g/dL RDW Std Deviation (28.0-62.0) fl RDW Coeff of Jessica (11.0-15.0) % Plt Count (150-400) K/uL MPV (7.40-12.00) fL Neut % (Auto) (48.0-80.0) % Lymph % (Auto) (16.0-40.0) % Castro % (Auto) (0.0-15.0) % Eos % (Auto) (0.0-7.0) % Baso % (Auto) (0.0-1.5) % Neut # (Auto) (1.4-5.7) K/uL Lymph # (Auto) (0.6-2.4) K/uL Castro # (Auto) (0.0-0.8) K/uL Eos # (Auto) (0.0-0.7) K/uL Baso # (Auto) (0.0-0.1) K/uL Nucleated RBC % /100WBC Nucleated RBCs # K/uL Sodium (136-148) mmol/L Potassium (3.5-5.1) mmol/L Chloride (98-107) mmol/L Carbon Dioxide (21.0-32.0) mmol/L BUN (7.0-18.0) mg/dL Creatinine (0.8-1.3) mg/dL Est Cr Clr Drug Dosing mL/min Estimated GFR (MDRD) ml/min Glucose (74-106) mg/dL Calcium (8.5-10.1) mg/dL Total Bilirubin (0.2-1.0) mg/dL AST (15-37) IU/L ALT (14-63) IU/L Alkaline Phosphatase (46-116) U/L Ammonia 95 H (19-54) ug/dL Total Protein (6.4-8.2) g/dL Albumin (3.4-5.0) g/dL Globulin (2.6-4.0) g/dL Albumin/Globulin Ratio (0.9-1.6) Urine Color Urine Appearance Urine pH (5.0-8.0) Ur Specific [place] (1.001-1.035) Urine Protein (NEGATIVE) mg/dL Urine Glucose (UA) (NEGATIVE) mg/dL Urine Ketones (NEGATIVE) mg/dL Urine Occult Blood (NEGATIVE) Urine Nitrite (NEGATIVE) Urine Bilirubin (NEGATIVE) Urine Urobilinogen (<2.0) EU/dL Ur Leukocyte Esterase (NEGATIVE) SARS-CoV-2 RNA (BÁRBARA) NEGATIVE (NEGATIVE) Meds: Medications Generic Name Dose Route Start Last Admin Trade Name Freq PRN Reason Stop Dose Admin Sodium Chloride 1,000 mls @ 200 mls/hr 09/28/20 00:45 09/28/20 01:04 Normal Saline IV 200 mls/hr ASDIRECTED TANIA Administration Sodium Chloride 10 ml 09/27/20 22:53 Sodium Chloride 0.9% 10 Ml Syringe FLUSH ASDIRECTED PRN Keep Vein Open Sodium Chloride 2.5 ml 09/27/20 22:53 Sodium Chloride 0.9% 2.5 Ml Syringe FLUSH ASDIRECTED PRN Keep Vein Open Discontinued Medications Generic Name Dose Route Start Last Admin Trade Name Janna PRN Reason Stop Dose Admin Lactulose 10 gm 09/28/20 00:39 09/28/20 01:07 Lactulose Soln 10 Gm/15 Ml 15 Ml Ud Cup PO 09/28/20 00:40 10 gm ONETIME ONE Administration - Re-Assessments/Exams Free Text/Narrative Re-Assessment/Exam: 09/28/20 01:12 The patient reports he is feeling better. Discussed all results and recommendation for admission with the patient and spouse. They agree with the plan. 09/28/20 01:[address] Ibarra for admission. He accepts. Departure - Departure Time of Disposition: 01:35 Disposition: Refer to Observation Clinical Impression: Hepatic encephalopathy, Acute renal insufficiency - Discharge Information Sepsis Event Note (ED) - Evaluation Sepsis Screening Result: No Definite Risk - Focused Exam Vital Signs: Vital Signs Temp Pulse Resp BP Pulse Ox 09/28/20 01:00 77 18 138/67 97 09/27/20 23:30 73 18 139/68 99 09/27/20 22:25 97 F 83 18 145/71 H 97 - My Orders Last 24 Hours: My Active Orders 09/27/20 22:53 Sodium Chloride 0.9% [Saline Flush] 10 ml FLUSH ASDIRECTED PRN Sodium Chloride 0.9% [Saline Flush] 2.5 ml FLUSH ASDIRECTED PRN Saline Lock Insert [OM.PC] Stat 09/27/20 22:54 EKG Documentation Completion [RC] STAT 09/28/20 00:45 Sodium Chloride 0.9% [Normal Saline] 1,000 ml IV ASDIRECTED - Assessment/Plan Last 24 Hours: My Active Orders 09/27/20 22:53 Sodium Chloride 0.9% [Saline Flush] 10 ml FLUSH ASDIRECTED PRN Sodium Chloride 0.9% [Saline Flush] 2.5 ml FLUSH ASDIRECTED PRN Saline Lock Insert [OM.PC] Stat 09/27/20 22:54 EKG Documentation Completion [RC] STAT 09/28/20 00:45 Sodium Chloride 0.9% [Normal Saline] 1,000 ml IV ASDIRECTED
[2020-09-28] MEDS ORDERED: Glucagon,Human Recombinant 1 MG Vial IM PRN (04:26)
[2020-09-28] MEDS ORDERED: 50% Dextrose in Water 50 ML Syringe IVPUSH PRN (04:26)
[2020-09-28] MEDS ORDERED: Lactulose Soln 10 GM/15 ML 15 ML UD Cup PO SCH (06:00)
[2020-09-28 07:06] LABS: CARBON DIOXIDE,CO2 24.3 mmol/L (21.0-32.0); POTASSIUM,K 4.5 mmol/L (3.5-5.1)
[2020-09-28] MEDS: Insulin Aspart 100 Units/ML 3 ML Pen SUBCUT SCH ×3 (07:30→17:53)
[2020-09-28] MEDS: Lactulose Soln 10 GM/15 ML 15 ML UD Cup PO SCH ×3 (08:58→17:52)
[2020-09-28] MEDS ORDERED: Simvastatin 40 MG Tab PO SCH (11:45)
--- NOTE | 2020-09-28 11:56 | PCM.HP.2 ---
H&P History of Present Illness - General Date of Service: 09/28/20 Admit Problem/Dx: Admission Diagnosis/Problem Admission Diagnosis/Problem Hepatic encephalopathy - History of Present Illness Initial Comments - Free Text/Narative: 74-year-old male brought into the emergency department by his presents to the ED for confusion and admitted to the service for confusion and hyperammonemia. The patient past medical history includes with TIPS procedure has a history of cirrhosis. Patient's states that his regular dose of lactulose is 45 mL 4 times a day however the patient has been having unsteady hands causing him to spill some of the lactulose onto the ground not getting the full 45 mL required in his cup for consumption. Patient's suspects this may been going on for a few days causing the patient to become more confused, sleepy, forgetful. Patient was noted to have reduced food intake and a decreased appetite. ED work-up to include laboratory, BUN 26, creatinine 2.1 AST 76, ALT 100, alk phos 237, ammonia level 95. Head CT impression, no evidence of acute infarction, intracranial hemorrhage, or mass-effect seen. Upon admission patient started on lactulose 30gm p.o. 4 times daily and rifaximin. Will hold Lasix, midodrine and spironolactone, resume as needed based on fluid status and blood pressure. - Related Data Allergies/Adverse Reactions: Allergies Allergy/AdvReac Type Severity Reaction Status Date / Time No Known Allergies Allergy Verified 09/28/20 05:19 Home Medications: Home Meds Ferrous Sulfate 1 tab PO DAILY 04/04/20 [History] Furosemide [Lasix] 40 mg PO BID 04/04/20 [History] Insulin Glarg,Human.Rec.Analog [Lantus] 15 units SQ ACBREAKFAST 04/04/20 [History] Omeprazole Magnesium [Prilosec Otc] 40 mg PO DAILY 04/04/20 [History] Simvastatin 40 mg PO ASDIRECTED 04/04/20 [History] Spironolactone [Aldactone] 50 mg PO DAILY 04/04/20 [History] Aspirin 81 mg PO DAILY 09/28/20 [History] Lactulose 45 ml PO Q4HR 09/28/20 [History] Midodrine 2.5 mg PO BID 09/28/20 [History] Rifaximin [Xifaxan] 550 mg PO BID 09/28/20 [History] metFORMIN [Glucophage] 500 mg PO BIDMEALS 09/28/20 [History] Past Medical History HEENT History: Reports: Hard of Hearing Cardiovascular History: Reports: High Cholesterol, Hypertension Respiratory History: Reports: None Gastrointestinal History: Reports: Cirrhosis Genitourinary History: Reports: Prostate Disorder Musculoskeletal History: Reports: None Neurological History: Reports: None Psychiatric History: Reports: None Endocrine/Metabolic History: Reports: Diabetes, Type II Insulin Pump Model and Frame Bander: None Hematologic History: Reports: None Immunologic History: Reports: None Oncologic (Cancer) History: Reports: Prostate Dermatologic History: Reports: None - Infectious Disease History Infectious Disease History: Reports: None - Past Surgical History Head Surgeries/Procedures: Reports: None GI Surgical History: Reports: Cholecystectomy, Other (See Below) Other GI Surgeries/Procedures: Liver Stents Social & Family History - Family History Family Medical History: No Pertinent Family History - Tobacco Use Tobacco Use Status *Q: Never Tobacco User - Caffeine Use Caffeine Use: Reports: None - Recreational Drug Use Recreational Drug Use: No H&P Review of Systems - Review of Systems: Review Of Systems: See Below General: Reports: Weakness, Fatigue. Denies: Fever, Chills Pulmonary: Denies: Shortness of Breath, Wheezing, Pleuritic Chest Pain, Cough Cardiovascular: Denies: Chest Pain, Palpitations Gastrointestinal: Reports: Decreased Appetite. Denies: Abdominal Pain, Nausea, Vomiting Genitourinary: Denies: Dysuria Psychiatric: Reports: Confusion Neurological: Reports: Confusion. Denies: Headache Exam - Exam Exam: See Below - Vital Signs Vital Signs: Last Vital Signs Temp 97.3 F 09/28/20 05:00 Pulse 69 09/28/20 05:00 Resp 17 09/28/20 05:00 BP 146/63 H 09/28/20 05:00 Pulse Ox 98 09/28/20 05:00 Weight: 193 lb 4.8 oz - Exam General: Alert Lungs: Clear to Auscultation, Normal Respiratory Effort Cardiovascular: Regular Rate, Regular Rhythm GI/Abdominal Exam: Soft, Non-Tender, No Distention Extremities: No Pedal Edema Neuro Extensive - Mental Status: Alert. No: Normal Mood/Affect, Normal Cognition - Patient Data Lab Results Last 24 hrs: Laboratory Results - last 24 hr 09/27/20 09/27/20 09/27/20 Range/Units 11:15 22:50 22:50 WBC 7.78 (4.0-11.0) K/uL RBC 4.23 L (4.50-5.90) M/uL Hgb 13.8 (13.0-17.0) g/dL Hct 37.0 L (38.0-50.0) % MCV 87.5 (80.0-98.0) fL MCH 32.6 H (27.0-32.0) pg MCHC 37.3 H (31.0-37.0) g/dL RDW Std Deviation 45.3 (28.0-62.0) fl RDW Coeff of Jessica 15 (11.0-15.0) % Plt Count 174 (150-400) K/uL MPV 11.70 (7.40-12.00) fL Neut % (Auto) 68.4 (48.0-80.0) % Lymph % (Auto) 16.2 (16.0-40.0) % [place] % (Auto) 12.2 (0.0-15.0) % Eos % (Auto) 2.6 (0.0-7.0) % Baso % (Auto) 0.6 (0.0-1.5) % Neut # (Auto) 5.3 (1.4-5.7) K/uL Lymph # (Auto) 1.3 (0.6-2.4) K/uL [place] # (Auto) 1.0 H (0.0-0.8) K/uL Eos # (Auto) 0.2 (0.0-0.7) K/uL Baso # (Auto) 0.1 (0.0-0.1) K/uL Nucleated RBC % 0.0 /100WBC Nucleated RBCs # 0 K/uL Sodium 136 (136-148) mmol/L Potassium 5.1 (3.5-5.1) mmol/L Chloride 99 (98-107) mmol/L Carbon Dioxide 26.2 (21.0-32.0) mmol/L BUN 30 H (7.0-18.0) mg/dL Creatinine 2.3 H (0.8-1.3) mg/dL Est Cr Clr Drug Dosing 29.98 mL/min Estimated GFR (MDRD) 28.1 ml/min Glucose 261 H (74-106) mg/dL POC Glucose (70-99) mg/dL Calcium 12.5 H (8.5-10.1) mg/dL Total Bilirubin 2.6 H (0.2-1.0) mg/dL AST 93 H (15-37) IU/L ALT 115 H (14-63) IU/L Alkaline Phosphatase 274 H (46-116) U/L Ammonia (19-54) ug/dL Total Protein 7.0 (6.4-8.2) g/dL Albumin 3.6 (3.4-5.0) g/dL Globulin 3.4 (2.6-4.0) g/dL Albumin/Globulin Ratio 1.1 (0.9-1.6) Urine Color YELLOW Urine Appearance CLEAR Urine pH 5.5 (5.0-8.0) Ur Specific [place] 1.025 (1.001-1.035) Urine Protein 30 H (NEGATIVE) mg/dL Urine Glucose (UA) NEGATIVE (NEGATIVE) mg/dL Urine Ketones NEGATIVE (NEGATIVE) mg/dL Urine Occult Blood TRACE-INTACT H (NEGATIVE) Urine Nitrite NEGATIVE (NEGATIVE) Urine Bilirubin NEGATIVE (NEGATIVE) Urine Urobilinogen 0.2 (<2.0) EU/dL Ur Leukocyte Esterase NEGATIVE (NEGATIVE) SARS-CoV-2 RNA (BÁRBARA) (NEGATIVE) 09/27/20 09/28/20 09/28/20 Range/Units 22:50 01:15 06:05 WBC 6.28 (4.0-11.0) K/uL RBC 3.78 L (4.50-5.90) M/uL Hgb 12.1 L (13.0-17.0) g/dL Hct 33.3 L (38.0-50.0) % MCV 88.1 (80.0-98.0) fL MCH 32.0 (27.0-32.0) pg MCHC 36.3 (31.0-37.0) g/dL RDW Std Deviation 46.0 (28.0-62.0) fl RDW Coeff of Jessica 15 (11.0-15.0) % Plt Count 142 L (150-400) K/uL MPV 11.30 (7.40-12.00) fL Neut % (Auto) 64.8 (48.0-80.0) % Lymph % (Auto) 19.4 (16.0-40.0) % [place] % (Auto) 10.5 (0.0-15.0) % Eos % (Auto) 4.3 (0.0-7.0) % Baso % (Auto) 1.0 (0.0-1.5) % Neut # (Auto) 4.1 (1.4-5.7) K/uL Lymph # (Auto) 1.2 (0.6-2.4) K/uL [place] # (Auto) 0.7 (0.0-0.8) K/uL Eos # (Auto) 0.3 (0.0-0.7) K/uL Baso # (Auto) 0.1 (0.0-0.1) K/uL Nucleated RBC % 0.0 /100WBC Nucleated RBCs # 0 K/uL Sodium (136-148) mmol/L Potassium (3.5-5.1) mmol/L Chloride (98-107) mmol/L Carbon Dioxide (21.0-32.0) mmol/L BUN (7.0-18.0) mg/dL Creatinine (0.8-1.3) mg/dL Est Cr Clr Drug Dosing mL/min Estimated GFR (MDRD) ml/min Glucose (74-106) mg/dL POC Glucose (70-99) mg/dL Calcium (8.5-10.1) mg/dL Total Bilirubin (0.2-1.0) mg/dL AST (15-37) IU/L ALT (14-63) IU/L Alkaline Phosphatase (46-116) U/L Ammonia 95 H (19-54) ug/dL Total Protein (6.4-8.2) g/dL Albumin (3.4-5.0) g/dL Globulin (2.6-4.0) g/dL Albumin/Globulin Ratio (0.9-1.6) Urine Color Urine Appearance Urine pH (5.0-8.0) Ur Specific [place] (1.001-1.035) Urine Protein (NEGATIVE) mg/dL Urine Glucose (UA) (NEGATIVE) mg/dL Urine Ketones (NEGATIVE) mg/dL Urine Occult Blood (NEGATIVE) Urine Nitrite (NEGATIVE) Urine Bilirubin (NEGATIVE) Urine Urobilinogen (<2.0) EU/dL Ur Leukocyte Esterase (NEGATIVE) SARS-CoV-2 RNA (BÁRBARA) NEGATIVE (NEGATIVE) 09/28/20 09/28/20 Range/Units 06:05 07:02 WBC (4.0-11.0) K/uL RBC (4.50-5.90) M/uL Hgb (13.0-17.0) g/dL Hct (38.0-50.0) % MCV (80.0-98.0) fL MCH (27.0-32.0) pg MCHC (31.0-37.0) g/dL RDW Std Deviation (28.0-62.0) fl RDW Coeff of Jessica (11.0-15.0) % Plt Count (150-400) K/uL MPV (7.40-12.00) fL Neut % (Auto) (48.0-80.0) % Lymph % (Auto) (16.0-40.0) % [place] % (Auto) (0.0-15.0) % Eos % (Auto) (0.0-7.0) % Baso % (Auto) (0.0-1.5) % Neut # (Auto) (1.4-5.7) K/uL Lymph # (Auto) (0.6-2.4) K/uL [place] # (Auto) (0.0-0.8) K/uL Eos # (Auto) (0.0-0.7) K/uL Baso # (Auto) (0.0-0.1) K/uL Nucleated RBC % /100WBC Nucleated RBCs # K/uL Sodium 139 (136-148) mmol/L Potassium 4.5 (3.5-5.1) mmol/L Chloride 103 (98-107) mmol/L Carbon Dioxide 24.3 (21.0-32.0) mmol/L BUN 26 H (7.0-18.0) mg/dL Creatinine 2.1 H (0.8-1.3) mg/dL Est Cr Clr Drug Dosing 32.91 mL/min Estimated GFR (MDRD) 31.2 ml/min Glucose 158 H (74-106) mg/dL POC Glucose 147 H (70-99) mg/dL Calcium 11.5 H (8.5-10.1) mg/dL Total Bilirubin 2.2 H (0.2-1.0) mg/dL AST 76 H (15-37) IU/L ALT 100 H (14-63) IU/L Alkaline Phosphatase 237 H (46-116) U/L Ammonia (19-54) ug/dL Total Protein 5.9 L (6.4-8.2) g/dL Albumin 3.0 L (3.4-5.0) g/dL Globulin 2.9 (2.6-4.0) g/dL Albumin/Globulin Ratio 1.0 (0.9-1.6) Urine Color Urine Appearance Urine pH (5.0-8.0) Ur Specific [place] (1.001-1.035) Urine Protein (NEGATIVE) mg/dL Urine Glucose (UA) (NEGATIVE) mg/dL Urine Ketones (NEGATIVE) mg/dL Urine Occult Blood (NEGATIVE) Urine Nitrite (NEGATIVE) Urine Bilirubin (NEGATIVE) Urine Urobilinogen (<2.0) EU/dL Ur Leukocyte Esterase (NEGATIVE) SARS-CoV-2 RNA (BÁRBARA) (NEGATIVE) Result Diagrams: 09/28/20 06:05 09/28/20 06:05 Sepsis Event Note - Evaluation Sepsis Screening Result: No Definite Risk - Focused Exam Vital Signs: Vital Signs Temp Pulse Resp BP Pulse Ox 09/28/20 05:00 97.3 F 69 17 146/63 H 98 09/28/20 03:30 97.5 F 66 18 120/56 L 98 09/28/20 01:00 77 18 138/67 97 - Problem List (1) Hepatic encephalopathy SNOMED Code(s): 72739756 ICD Code: K72.90 - HEPATIC FAILURE, UNSPECIFIED WITHOUT COMA Status: Acute Current Visit: Yes (2) Diabetes type 2, controlled SNOMED Code(s): 83536859, 685506001 ICD Code: E11.9 - TYPE 2 DIABETES MELLITUS WITHOUT COMPLICATIONS Status: Acute Current Visit: Yes (3) Hypertension SNOMED Code(s): 94453672 ICD Code: I10 - ESSENTIAL (PRIMARY) HYPERTENSION Status: Acute Current Visit: Yes Problem List Initiated/Reviewed/Updated: Yes Orders Last 24hrs: Active Orders 24 hr Category Date Time Status Patient Status [ADT] Routine ADT 09/28/20 01:47 Active Accu Check [Blood Glucose Check, Bedside] [RC] [facility] 09/28/20 07:30 Active [place] [employer] Diet [DIET] Diet 09/28/20 Breakfast Active Dextrose 50% in Water Med 09/28/20 04:26 Active 50 ml IVPUSH ASDIRECTED PRN Glucagon,Human Recombinant [GlucaGen] Med 09/28/20 04:26 Active 1 mg IM ASDIRECTED PRN Insulin Aspart [NovoLOG] Med 09/28/20 07:30 Active See Protocol SUBCUT TIDAC Insulin Glarg,Human.Rec.Analog Med 09/29/20 08:00 Ordered 15 units SQ ACBREAKFAST Lactulose [Chronulac] Med 09/28/20 08:00 Active 30 gm PO QID Omeprazole Magnesium [Prilosec Otc] Med 09/28/20 12:00 Ordered 40 mg PO DAILY Rifaximin [Xifaxan] Med 09/28/20 12:00 Ordered 550 mg PO BID Sodium Chloride 0.9% [Normal Saline] 1,000 ml Med 09/28/20 00:45 Active IV ASDIRECTED Sodium Chloride 0.9% [Saline Flush] Med 09/27/20 22:53 Active 10 ml FLUSH ASDIRECTED PRN Sodium Chloride 0.9% [Saline Flush] Med 09/27/20 22:53 Active 2.5 ml FLUSH ASDIRECTED PRN Spironolactone [Aldactone] Med 09/28/20 12:00 Ordered 50 mg PO DAILY Saline Lock Insert [OM.PC] Stat Oth 09/27/20 22:53 Ordered Medication Orders Dextrose/Water (50% Dextrose In Water 50 Ml Syringe) 50 ml IVPUSH ASDIRECTED PRN PRN Reason: Hypoglycemia Glucagon (Glucagon,Human Recombinant 1 Mg Vial) 1 mg IM ASDIRECTED PRN PRN Reason: Hypoglycemia Sodium Chloride (Normal Saline) 1,000 mls @ 200 mls/hr IV ASDIRECTED TANIA Last Admin: 09/28/20 01:04 Dose: 200 mls/hr Documented by: NA Insulin Aspart (Insulin Aspart 100 Units/Ml 3 Ml Pen) 0 unit SUBCUT TIDAC TANIA; Protocol Lactulose (Lactulose Soln 10 Gm/15 Ml 15 Ml Ud Cup) 30 gm PO QID TANIA Last Admin: 09/28/20 08:58 Dose: 30 gm Documented by: AYLEEN Non-Formulary Medication (Omeprazole Magnesium [Prilosec Otc]) 40 mg PO DAILY TANIA Non-Formulary Medication (Insulin Glarg,Human.Rec.Analog) 15 units SQ ACBREAKFAST TANIA Rifaximin (Rifaximin 550 Mg Tab) 550 mg PO BID TANIA Sodium Chloride (Sodium Chloride 0.9% 10 Ml Syringe) 10 ml FLUSH ASDIRECTED PRN PRN Reason: Keep Vein Open Sodium Chloride (Sodium Chloride 0.9% 2.5 Ml Syringe) 2.5 ml FLUSH ASDIRECTED PRN PRN Reason: Keep Vein Open Spironolactone (Spironolactone 25 Mg Tab) 50 mg PO DAILY [facility] Assessment/Plan Comment:: Hepatic encephalopathy- ammonia level 95. Resume lactulose 30 gm P.O. 4 times daily, rifaximin. Will hold Lasix, midodrine and spironolactone currently. Resume as needed based on fluid status and blood pressure. Diabetes type 2 Insulin low dose sliding scale, diabetic diet, Lantus 15 units every morning
[2020-09-28] MEDS ORDERED: Spironolactone 25 MG Tab PO SCH (12:00)
[2020-09-28] MEDS: Omeprazole 20 MG Cap.CR PO SCH (12:19)
[2020-09-28] MEDS: Rifaximin 550 MG Tab PO SCH ×2 (16:44→21:04)
[2020-09-29 07:09] LABS: CARBON DIOXIDE,CO2 27.9 mmol/L (21.0-32.0); POTASSIUM,K 4.3 mmol/L (3.5-5.1)
[2020-09-29] MEDS: Insulin Aspart 100 Units/ML 3 ML Pen SUBCUT SCH ×2 (07:46→12:03)
[2020-09-29] MEDS ORDERED: Insulin Glargine,Human Rec. Analog 100 Units/ML 3 ML Pen SUBCUT SCH (08:00)
[2020-09-29] MEDS: Omeprazole 20 MG Cap.CR PO SCH (08:25)
[2020-09-29] MEDS: Lactulose Soln 10 GM/15 ML 15 ML UD Cup PO SCH ×2 (08:25→12:07)
[2020-09-29] MEDS: Rifaximin 550 MG Tab PO SCH (08:26)
[2020-09-29 10:20] VITALS: BP 135/56; PULSE 79
[2020-09-29] MEDS ORDERED: Non-Formulary Medication 1 Each (Insulin Glarg,Human.Rec.Analog 100 UNIT/ML Ml) SQ SCH (12:00)
[2020-09-29] MEDS ORDERED: Spironolactone 25 MG Tab PO SCH (12:00)
--- NOTE | 2020-09-29 12:45 | PCM.DCSUM1 ---
Discharge Summary - Hospital Course HPI Initial Comments: 74-year-old male with a history of cirrhosis, status post TIPS procedure is admitted to the hospital for acute confusion and hyperammonemia. Patient and are unaware of the etiology of his cirrhosis. states that they were told he has a history of fatty liver. At home the patient takes lactulose 45 mL 4 times a day however had not been taking the appropriate dose. He became progressively more confused, sleepy and forgetful. stated that he had decreased intake of food. In the ER the patient was noted to have creatinine of 2.1, BUN 26, AST 76, ALT 100, alk phos 237, ammonia 95. Head CT showed no evidence of acute infarction, intracranial hemorrhage or mass-effect. Patient was admitted and started on lactulose 30 g 4 times a day and rifaximin 550 mg twice daily. Patient had bowel movements multiple times and his mental status improved. Patient's vitals were stable. Patient did not have leukocytosis. His kidney function level improved, BUN 23 creatinine 1.7. Patient stable and ready for discharge. Patient will need close outpatient follow-up with his PCP to assess BUN and creatinine levels. Patient instructed on the importance of having multiple bowel movements daily. - Discharge Data Discharge Date: 09/29/20 Discharge Disposition: Home, Self-Care 01 Condition: Stable - Referral to Home Health Primary Care Physician: Abner Kirkland, DO - Patient Instructions Diet: Usual Diet as Tolerated Notify Provider of: Fever, Increased Pain, Swelling and Redness, Nausea and/or Vomiting Other/Special Instructions: Confusion, forgetful, jaundice. - Discharge Plan *PRESCRIPTION DRUG MONITORING PROGRAM REVIEWED*: Not Applicable *COPY OF PRESCRIPTION DRUG MONITORING REPORT IN PATIENT MARY: Not Applicable Home Medications: Home Meds Ferrous Sulfate 1 tab PO DAILY 04/04/20 [History] Furosemide [Lasix] 40 mg PO BID 04/04/20 [History] Insulin Glarg,Human.Rec.Analog [Lantus] 15 units SQ ACBREAKFAST 04/04/20 [History] Omeprazole Magnesium [Prilosec Otc] 40 mg PO DAILY 04/04/20 [History] Simvastatin 40 mg PO ASDIRECTED 04/04/20 [History] Spironolactone [Aldactone] 50 mg PO DAILY 04/04/20 [History] Aspirin 81 mg PO DAILY 09/28/20 [History] Lactulose 45 ml PO Q4HR 09/28/20 [History] Midodrine 2.5 mg PO BID 09/28/20 [History] Rifaximin [Xifaxan] 550 mg PO BID 09/28/20 [History] metFORMIN [Glucophage] 500 mg PO BIDMEALS 09/28/20 [History] Patient Handouts: Hepatic Encephalopathy, Ammonia Test Referrals: Abner Kirkland DO [Primary Care Provider] - - Discharge Summary/Plan Comment DC Time >30 min.: Yes - General Info Date of Service: 09/29/20 Admission Dx/Problem (Free Text: Admission Diagnosis/Problem Admission Diagnosis/Problem Hepatic encephalopathy - Review of Systems General: Reports: No Symptoms HEENT: Reports: No Symptoms Pulmonary: Reports: No Symptoms. Denies: Shortness of Breath Cardiovascular: Reports: No Symptoms Gastrointestinal: Denies: Abdominal Pain, Nausea, Vomiting Genitourinary: Denies: Dysuria Musculoskeletal: Reports: No Symptoms Skin: Denies: Jaundice, Pallor Neurological: Reports: Tremors. Denies: Confusion, Dizziness, Headache, Trouble Speaking - Patient Data Vitals - Most Recent: Last Vital Signs Temp 98.4 F 09/29/20 10:20 Pulse 79 09/29/20 10:20 Resp 18 09/29/20 10:20 BP 135/56 L 09/29/20 10:20 Pulse Ox 98 09/29/20 03:40 Weight - Most Recent: 193 lb 4.8 oz I&O - Last 24 hours: Intake & Output 09/28/20 09/29/20 09/29/20 22:59 06:59 14:59 Intake Total 980 840 Output Total 600 Balance 380 840 Lab Results - Last 24 hrs: Laboratory Results - last 24 hr 09/28/20 09/29/20 09/29/20 Range/Units 17:18 06:05 06:05 WBC 6.33 (4.0-11.0) K/uL RBC 3.64 L (4.50-5.90) M/uL Hgb 11.9 L (13.0-17.0) g/dL Hct 31.7 L (38.0-50.0) % MCV 87.1 (80.0-98.0) fL MCH 32.7 H (27.0-32.0) pg MCHC 37.5 H (31.0-37.0) g/dL RDW Std Deviation 44.9 (28.0-62.0) fl RDW Coeff of Jessica 14 (11.0-15.0) % Plt Count 143 L (150-400) K/uL MPV 11.20 (7.40-12.00) fL Neut % (Auto) 70.2 (48.0-80.0) % Lymph % (Auto) 15.0 L (16.0-40.0) % [place] % (Auto) 9.8 (0.0-15.0) % Eos % (Auto) 4.1 (0.0-7.0) % Baso % (Auto) 0.9 (0.0-1.5) % Neut # (Auto) 4.4 (1.4-5.7) K/uL Lymph # (Auto) 1.0 (0.6-2.4) K/uL [place] # (Auto) 0.6 (0.0-0.8) K/uL Eos # (Auto) 0.3 (0.0-0.7) K/uL Baso # (Auto) 0.1 (0.0-0.1) K/uL Nucleated RBC % 0.0 /100WBC Nucleated RBCs # 0 K/uL Sodium 136 (136-148) mmol/L Potassium 4.3 (3.5-5.1) mmol/L Chloride 102 (98-107) mmol/L Carbon Dioxide 27.9 (21.0-32.0) mmol/L BUN 23 H (7.0-18.0) mg/dL Creatinine 1.7 H (0.8-1.3) mg/dL Est Cr Clr Drug Dosing 40.66 mL/min Estimated GFR (MDRD) 39.8 ml/min Glucose 157 H (74-106) mg/dL POC Glucose 209 H (70-99) mg/dL Calcium 10.4 H (8.5-10.1) mg/dL Total Bilirubin 3.1 H (0.2-1.0) mg/dL AST 66 H (15-37) IU/L ALT 88 H (14-63) IU/L Alkaline Phosphatase 197 H (46-116) U/L Total Protein 5.6 L (6.4-8.2) g/dL Albumin 2.9 L (3.4-5.0) g/dL Globulin 2.7 (2.6-4.0) g/dL Albumin/Globulin Ratio 1.1 (0.9-1.6) 09/29/20 09/29/20 Range/Units 06:44 11:23 WBC (4.0-11.0) K/uL RBC (4.50-5.90) M/uL Hgb (13.0-17.0) g/dL Hct (38.0-50.0) % MCV (80.0-98.0) fL MCH (27.0-32.0) pg MCHC (31.0-37.0) g/dL RDW Std Deviation (28.0-62.0) fl RDW Coeff of Jessica (11.0-15.0) % Plt Count (150-400) K/uL MPV (7.40-12.00) fL Neut % (Auto) (48.0-80.0) % Lymph % (Auto) (16.0-40.0) % [place] % (Auto) (0.0-15.0) % Eos % (Auto) (0.0-7.0) % Baso % (Auto) (0.0-1.5) % Neut # (Auto) (1.4-5.7) K/uL Lymph # (Auto) (0.6-2.4) K/uL [place] # (Auto) (0.0-0.8) K/uL Eos # (Auto) (0.0-0.7) K/uL Baso # (Auto) (0.0-0.1) K/uL Nucleated RBC % /100WBC Nucleated RBCs # K/uL Sodium (136-148) mmol/L Potassium (3.5-5.1) mmol/L Chloride (98-107) mmol/L Carbon Dioxide (21.0-32.0) mmol/L BUN (7.0-18.0) mg/dL Creatinine (0.8-1.3) mg/dL Est Cr Clr Drug Dosing mL/min Estimated GFR (MDRD) ml/min Glucose (74-106) mg/dL POC Glucose 170 H 316 H (70-99) mg/dL Calcium (8.5-10.1) mg/dL Total Bilirubin (0.2-1.0) mg/dL AST (15-37) IU/L ALT (14-63) IU/L Alkaline Phosphatase (46-116) U/L Total Protein (6.4-8.2) g/dL Albumin (3.4-5.0) g/dL Globulin (2.6-4.0) g/dL Albumin/Globulin Ratio (0.9-1.6) Med Orders - Current: Current Medications Aspirin (Aspirin 81 Mg Tab.Chew) 81 mg PO [id number] [facility] Dextrose/Water (50% Dextrose In Water 50 Ml Syringe) 50 ml IVPUSH ASDIRECTED PRN PRN Reason: Hypoglycemia Glucagon (Glucagon,Human Recombinant 1 Mg Vial) 1 mg IM ASDIRECTED PRN PRN Reason: Hypoglycemia Insulin Aspart (Insulin Aspart 100 Units/Ml 3 Ml Pen) 0 unit SUBCUT TIDAC [facility]; Protocol Last Admin: 09/29/20 12:03 Dose: 4 unit Documented by: Insulin Glargine (Insulin Glargine,Human Rec. Analog 100 Units/Ml 3 Ml Pen) 15 units SUBCUT ACBREAKFAST [facility] Last Admin: 09/29/20 07:47 Dose: 15 unit Documented by: Lactulose (Lactulose Soln 10 Gm/15 Ml 15 Ml Ud Cup) 30 gm PO 0800,1200,1600,2000 [facility] Last Admin: 09/29/20 12:07 Dose: 30 gm Documented by: Omeprazole (Omeprazole 20 Mg Cap.Cr) 40 mg PO ACBREAKFAST [facility] Last Admin: 09/29/20 08:25 Dose: 40 mg Documented by: Rifaximin (Rifaximin 550 Mg Tab) 550 mg PO BID [facility] Last Admin: 09/29/20 08:26 Dose: 550 mg Documented by: Sodium Chloride (Sodium Chloride 0.9% 10 Ml Syringe) 10 ml FLUSH ASDIRECTED PRN PRN Reason: Keep Vein Open Sodium Chloride (Sodium Chloride 0.9% 2.5 Ml Syringe) 2.5 ml FLUSH ASDIRECTED PRN PRN Reason: Keep Vein Open Discontinued Medications Sodium Chloride (Normal Saline) 1,000 mls @ 200 mls/hr IV ASDIRECTED [facility] Last Admin: 09/28/20 01:04 Dose: 200 mls/hr Documented by: Lactulose (Lactulose Soln 10 Gm/15 Ml 15 Ml Ud Cup) 10 gm PO ONETIME ONE Stop: 09/28/20 00:40 Last Admin: 09/28/20 01:07 Dose: 10 gm Documented by: Lactulose (Lactulose Soln 10 Gm/15 Ml 15 Ml Ud Cup) 45 gm PO QID [facility] Lactulose (Lactulose Soln 10 Gm/15 Ml 15 Ml Ud Cup) 30 gm PO QID [facility] Last Admin: 09/28/20 17:52 Dose: 30 gm Documented by: Lactulose (Lactulose Soln 10 Gm/15 Ml 15 Ml Ud Cup) 30 gm PO NOW ONE Stop: 09/28/20 21:31 Last Admin: 09/28/20 21:26 Dose: 30 gm Documented by: Non-Formulary Medication (Insulin Glarg,Human.Rec.Analog) 15 units SQ ACBREAKFAST [facility] Simvastatin (Simvastatin 40 Mg Tab) 40 mg PO ASDIRECTED [facility] Spironolactone (Spironolactone 25 Mg Tab) 50 mg PO DAILY [facility] Spironolactone (Spironolactone 25 Mg Tab) 50 mg PO DAILY [facility] Last Admin: 09/28/20 12:19 Dose: 50 mg Documented by: - Exam General: Reports: Alert, Oriented, Cooperative HEENT: Reports: EOMI, Mucous Membr. Moist/[place]. Denies: Scleral Icterus Neck: Reports: Supple Lungs: Reports: Clear to Auscultation, Normal Respiratory Effort Cardiovascular: Reports: Regular Rate, Regular Rhythm, No Murmurs GI/Abdominal Exam: Normal Bowel Sounds, Soft, Non-Tender, Other (No ascites. Umbilical hernia) Extremities: Normal Inspection. No: Pedal Edema, Gemma's Sign, Leg Pain Skin: Reports: Warm, Dry, Intact, Other (No signs of jaundice) Neurological: Reports: Normal Speech, Strength Equal Bilateral, Other (Mild flapping tremor.) Psy/Mental Status: Reports: Alert
[2020-09-30] MEDS ORDERED: Aspirin 81 MG Tab.Chew PO SCH (09:00)
== END 2020-09-29 12:45 | disposition home or self-care (01) ==
LOC: MW.ED 21:56 → MW.MS 09-28 01:47
PROVIDERS: ADMIT Internal Medicine; ATTEND Internal Medicine
DX: R41.0 Disorientation, unspecified (principal); E72.20 Disorder of urea cycle metabolism, unspecified; K72.90 Hepatic failure, unspecified without coma; E78.00 Pure hypercholesterolemia, unspecified; I10 Essential (primary) hypertension; E11.9 Type 2 diabetes mellitus without complications; Z79.899 Other long term (current) drug therapy; Z79.82 Long term (current) use of aspirin; Z79.4 Long term (current) use of insulin; Z20.822 Contact with and (suspected) exposure to COVID-19
CPT/HCPCS: 36415; 70450; 80053; 81003; 82140; 82947; 85025; 93005; A9270; J1815; J7030; U0002; 99285-25